=== PATIENT | male | born 1975 | race Caucasian/White ===

== ENCOUNTER 2024-09-20 09:42 | Inpatient (IN) | payer OTHER ==
[2024-09-20 10:14] VITALS: BMI 18.8
[2024-09-20] MEDS ORDERED: guaiFENesin 600 MG TABLET.ER (FP) PO PRN (10:26)
[2024-09-20] MEDS ORDERED: ACETAMINOPHEN 325 MG TABLET (FP) PO PRN (10:26)
[2024-09-20] MEDS ORDERED: BISMUTH SUBSALICYLATE 524 MG/30 ML PO PRN (10:26)
[2024-09-20] MEDS ORDERED: BENZONATATE 200 MG CAPSULE PO PRN (10:26)
[2024-09-20] MEDS ORDERED: NICOTINE POLACRILEX 2 MG LOZENGE BC PRN (10:26)
[2024-09-20] MEDS ORDERED: LOPERAMIDE HCL 2 MG CAPSULE PO PRN (10:26)
[2024-09-20] MEDS ORDERED: P-EPHED 60MG/TRIPROLIDI 2.5MG TABLET PO PRN (10:26)
[2024-09-20] MEDS ORDERED: NALOXONE (NARCAN) HCL 4 MG/0.1 ML SPRAY NS PRN (10:26)
[2024-09-20] MEDS ORDERED: BENZOCAINE/MENTHOL (CHLORASEPTIC ) LOZENGE MM PRN (10:26)
[2024-09-20] MEDS ORDERED: DICYCLOMINE HCL 10 MG CAPSULE PO PRN (10:26)
[2024-09-20] MEDS ORDERED: ONDANSETRON *ODT* 4 MG TABLET SL PRN (10:26)
[2024-09-20] MEDS ORDERED: IBUPROFEN 400 MG TABLET (FP) PO PRN (10:26)
[2024-09-20] MEDS ORDERED: MAGNESIUM HYDROX 2400MG/30ML ORAL SUSPENSION 30 ML CUP PO PRN (10:26)
[2024-09-20] MEDS ORDERED: POLYETHYLENE GLYCOL (HEALTHYLAX) 3350 17 GM PACKET PO PRN (10:26)
[2024-09-20] MEDS ORDERED: METHOCARBAMOL 500 MG TABLET ONE (11:14)
[2024-09-20] MEDS ORDERED: NICOTINE POLACRILEX 2 MG GUM ONE (11:14)
[2024-09-20] MEDS ORDERED: methaDONE HCL 10 MG TABLET (FOR DETOX USE ONLY) ONE (11:14)
[2024-09-20] MEDS: METHOCARBAMOL 500 MG TABLET PO PRN (11:16)
[2024-09-20] MEDS: methaDONE HCL 10 MG TABLET (FOR DETOX USE ONLY) PO ONE (11:16)
[2024-09-20] MEDS: NICOTINE POLACRILEX 2 MG GUM BUC PRN (11:16)
[2024-09-20] MEDS: levETIRAcetam 500 MG TABLET (FP) PO SCH (13:45)
[2024-09-20] MEDS: MELATONIN 5 MG TABLETS PO SCH (22:52)
[2024-09-20] MEDS: THIAMINE 100 MG TABLET PO SCH (22:52)
[2024-09-20] MEDS: cloNIDine HCL 0.1 MG TABLET PO PRN (22:53)
[2024-09-21] MEDS: PRENATAL VITAMINS W/ FOLIC ACID TABLET (FP) PO SCH (10:16)
[2024-09-21 12:11] LABS: HEMATOCRIT 37.7 % (40.1-51.0); HEMOGLOBIN 11.9 g/dL (13.7-17.5); MCHC 31.6 g/dl (32.3-36.5); PLATELET COUNT 331 x10^3/uL (163-337); RDW 13.9 % (12.1-15.9)
[2024-09-21 12:16] LABS: POTASSIUM 4.4 mmol/L (3.5-5.1)
[2024-09-21 12:34] LABS: ALBUMIN 3.2 g/dl (3.4-5.0); BLOOD UREA NITROGEN 9.3 mg/dL (7-18); CALCIUM 8.7 mg/dL (8.5-10.1)
[2024-09-21 12:37] LABS: CREATININE 0.6 mg/dL (0.55-1.3)
[2024-09-21 12:39] LABS: BILIRUBIN,TOTAL 0.4 mg/dL (0.2-1)
[2024-09-22] MEDS: methaDONE HCL 10 MG TABLET (FOR DETOX USE ONLY) PO ONE (10:03)
[2024-09-22] MEDS: IBUPROFEN 600 MG TABLET (FP) PO PRN (12:33)
[2024-09-22] MEDS: MAG HYDROX/AL HYDROX/SIMETH 30 ML UNIT-DOSE CUP PO PRN (12:35)
[2024-09-23] MEDS: methaDONE HCL 40 MG DISPERSABLE TABLET PO ONE (09:44)
[2024-09-23] MEDS ORDERED: methaDONE HCL 40 MG DISPERSABLE TABLET PO ONE (10:00)
[2024-09-24] MEDS: methaDONE 40 MG, methaDONE 10 MG PO ONE (05:48)
[2024-09-24] MEDS ORDERED: methaDONE HCL 10 MG TABLET PO ONE (06:00)
[2024-09-24] MEDS ORDERED: methaDONE HCL 40 MG DISPERSABLE TABLET PO ONE (10:00)
[2024-09-24] MEDS ORDERED: methaDONE HCL 10 MG TABLET (FOR DETOX USE ONLY) PO ONE (10:00)
[2024-09-24] MEDS: cloNIDine HCL 0.1 MG TABLET PO PRN (22:51)
[2024-09-25] MEDS ORDERED: methaDONE HCL 10 MG TABLET PO ONE (06:00)
[2024-09-25] MEDS: methaDONE 40 MG, methaDONE 20 MG PO ONE (06:16)
[2024-09-25] MEDS: methaDONE 40 MG, methaDONE 10 MG PO ONE (09:30)
[2024-09-25] MEDS ORDERED: methaDONE HCL 40 MG DISPERSABLE TABLET PO ONE (10:00)
[2024-09-25 18:14] VITALS: RESP 16
[2024-09-26] MEDS ORDERED: methaDONE HCL 40 MG DISPERSABLE TABLET PO SCH (06:00)
[2024-09-26 06:37] VITALS: BP 110/62; PULSE 60; TEMP 97.6
== END 2024-09-26 07:13 | disposition home or self-care (01) | DRG 773 ==
LOC: YASAS 09:42 → Y6N 11:06
PROVIDERS: ADMIT Allergy & Immunology; ATTEND Allergy & Immunology
PROC: HZ2ZZZZ Detoxification Services for Substance Abuse Treatment (ICD-10-PCS; principal; 2024-09-20)
DX: F11.23 Opioid dependence with withdrawal (principal); F18.288 Inhalant dependence with other inhalant-induced disorder; F12.20 Cannabis dependence, uncomplicated; F17.210 Nicotine dependence, cigarettes, uncomplicated; G40.909 Epilepsy, unspecified, not intractable, without status epilepticus; R63.6 Underweight; Z68.1 Body mass index [BMI] 19.9 or less, adult; R26.89 Other abnormalities of gait and mobility; Z99.89 Dependence on other enabling machines and devices; Z59.01 Sheltered homelessness
CPT/HCPCS: 36415; 80053; 80305; 80307; 85027; 86780; 93005; 93010